=== PATIENT | female | born 1995 | race Caucasian/White ===

== ENCOUNTER 2020-11-02 17:16 | Inpatient (IN) | payer OTHER ==
[~2020-11-02] VITALS: Ht 180.3 cm; Wt 81.6 kg
[2020-11-05] MEDS ORDERED: PROTONIX40 MG PO (10:12)
[2020-11-05] MEDS ORDERED: FLAGYL500MG PO (10:12)
== END 2020-11-05 22:46 | DRG 446 ==
LOC: ER 17:16 → SEC-K 11-03 16:47 → O/R 11-03 16:47 → MEDI 11-03 16:47 → O/R 11-04 11:02 → MEDI 11-04 14:49
PROVIDERS: ADMIT Surgery; ATTEND Surgery
PROC: BF37YZZ Magnetic Resonance Imaging (MRI) of Pancreas using Other Contrast (ICD-10-PCS; principal; 2020-11-03)
PROC: BW40ZZZ Ultrasonography of Abdomen (ICD-10-PCS; 2020-11-03)
DX: K81.0 Acute cholecystitis (principal); Z20.822 Contact with and (suspected) exposure to COVID-19